=== PATIENT | male | born 1990 | race African-American/Black ===

== ENCOUNTER 2020-02-25 06:56 | Emergency (ER) | payer MEDICAID ==
[~2020-02-25] VITALS: Ht 172.7 cm; Wt 90.0 kg
[~2020-02-25 06:56] MED LIST: ACET325T52 PO; AMLO5TAB88 MT; OMEP20CA14 MT; THIA100T88 MT
[2020-02-25] MEDS ORDERED: ONDANSETRON HCL 4MG/2ML INJ IV STA (07:40)
[2020-02-25] MEDS ORDERED: SODIUM CHLORIDE 0.9% 1,000 ML IV ONE (07:40)
[2020-02-25] MEDS ORDERED: LORAZEPAM 2MG/ML CPJ IV ONE ×2 (07:45→09:00)
[2020-02-25 08:39] LABS: CHLORIDE 93 mEq/L (98-107)
[2020-02-25 08:41] LABS: BASOPHILS % 0.8 % (0.0-2.0); HEMATOCRIT. 46.9 % (42.0-52.0); HEMOGLOBIN. 16.2 g/dL (14.0-18.0); LYMPHOCYTES % 7.2 % (20.0-50.0); MEAN CORPUSCULAR HEMOGLOBIN 33.7 pg (28.0-32.0); MEAN CORPUSCULAR VOLUME 97.6 fL (80.0-94.0); MEAN PLATELET VOLUME 9.6 fl (7.4-10.4); MONOCYTES % 7.8 % (2.0-8.0); NEUTROPHILS % 84.2 % (40.0-76.0); PLATELET 166 x1000/uL (130-400); RED BLOOD CELL COUNT 4.81 mill/uL (4.7-6.1); RED CELL DISTRIBUTION WIDTH 13.7 % (11.6-14.6)
[2020-02-25 08:43] LABS: INR 1.1; PROTHROMBIN TIME 11.4 sec (9.6-11.0)
[2020-02-25 08:44] LABS: ETHANOL BLOOD < 10 mg/dL
[2020-02-25 09:35] LABS: CLARITY URINE CLEAR (CLEAR); COLOR URINE ORANGE (YELLOW); KETONES URINE 4+ (NEGATIVE); LEUKOCYTE ESTERASE URINE 1+ (NEGATIVE); NITRITE URINE POSITIVE (NEGATIVE); OCCULT BLOOD URINE 2+ (NEGATIVE); PH URINE 6.5 (4.5-8.0); PROTEIN URINE 4+ (NEGATIVE); SPECIFIC GRAVITY URINE 1.043 (1.005-1.030)
[2020-02-25 09:48] LABS: *BARBITURATES SCREEN URINE NEGATIVE (NEGATIVE)
[2020-02-25 09:49] LABS: *AMPHETAMINES SCREEN URINE NEGATIVE (NEGATIVE); *BENZODIAZEPINES SCREEN URINE NEGATIVE (NEGATIVE); *COCAINE SCREEN URINE NEGATIVE (NEGATIVE); METHADONE URINE SCREEN NEGATIVE (NEGATIVE); OPIATES URINE SCREEN NEGATIVE (NEGATIVE); PHENCYCLIDINE URINE SCREEN NEGATIVE (NEGATIVE)
[2020-02-25 09:50] LABS: CANNABINOID URINE SCREEN NEGATIVE (NEGATIVE)
[2020-02-25] MEDS ORDERED: SODIUM CHLORIDE 0.9% 1,000 ML IV NR (09:50)
[2020-02-25] MEDS ORDERED: MAGNESIUM/ALUMINUM HYDROXIDE/SIMETHICONE 30ML UDC PO NR (10:00)
[2020-02-25] MEDS ORDERED: CHLORDIAZEPOXIDE 25MG CAPSULE PO ONE (11:15)
[2020-02-25] MEDS ORDERED: CEFTRIAXONE 1 G PREMIX 50 ML IV NR (11:15)
[2020-02-25] MEDS ORDERED: CHLORDIAZEPOXIDE 25MG CAPSULE PO NR (12:30)
[2020-02-25 12:51] VITALS: BP 150/95
== END 2020-02-25 12:54 | disposition home or self-care (01) ==
LOC: ER 07:20
DX: F10.239 Alcohol dependence with withdrawal, unspecified (principal); N39.0 Urinary tract infection, site not specified; I10 Essential (primary) hypertension; I12.9 Hypertensive chronic kidney disease with stage 1 through stage 4 chronic kidney disease, or unspecified chronic kidney disease; N18.9 Chronic kidney disease, unspecified; Y90.0 Blood alcohol level of less than 20 mg/100 ml; Z90.5 Acquired absence of kidney
CPT/HCPCS: 36415; 71045; 80053; 80305; 80320; 81003; 83690; 83880; 84484; 85025; 85610; 93005; 96361; 96365; 96375; 96376; 99285; J0696; J2060; J2405; J7030; G0480

== ENCOUNTER 2025-02-27 00:07 | Emergency (ER) | payer MEDICAID ==
[~2025-02-27] VITALS: Ht 165.1 cm; Wt 75.0 kg
[~2025-02-27 00:07] MED LIST changes: +ACET-3800 PO; -ACET325T52 PO
[2025-02-27 02:51] VITALS: BP 114/79; PULSE 88; RESP 15; TEMP 37; O2SAT 96
== END 2025-02-27 02:55 | disposition home or self-care (01) ==
LOC: ER 00:07
DX: T50.901A Poisoning by unspecified drugs, medicaments and biological substances, accidental (unintentional), initial encounter (principal); Z79.899 Other long term (current) drug therapy; Y92.89 Other specified places as the place of occurrence of the external cause
CPT/HCPCS: 93005; 99283